=== PATIENT | male | born 1975 | race Caucasian/White ===

== ENCOUNTER 2020-09-12 14:22 | Emergency (ER) | payer SELFPAY ==
[~2020-09-12] VITALS: Ht 170.2 cm; Wt 70.0 kg
[2020-09-12 14:26] VITALS: BP 144/86
[2020-09-12 16:08] LABS: HEMATOCRIT. 43.3 % (42.0-52.0); HEMOGLOBIN. 15.2 g/dL (14.0-18.0); MEAN CORPUSCULAR HEMOGLOBIN 35.8 pg (28.0-32.0); MEAN PLATELET VOLUME 8.6 fl (7.4-10.4); PLATELET 128 x1000/uL (130-400); RED BLOOD CELL COUNT 4.24 mill/uL (4.7-6.1); RED CELL DISTRIBUTION WIDTH 14.8 % (11.6-14.6)
[2020-09-12 16:14] LABS: CHLORIDE 110 mEq/L (98-107)
[2020-09-12 16:44] LABS: ETHANOL BLOOD 520 mg/dL
[2020-09-12 17:25] LABS: PLATELET ESTIMATE SLIGHTLY DECREASED
== END 2020-09-12 16:10 | disposition left against medical advice (07) ==
LOC: ER 14:22
DX: T51.0X1A Toxic effect of ethanol, accidental (unintentional), initial encounter (principal); G92 Toxic encephalopathy; Y90.8 Blood alcohol level of 240 mg/100 ml or more; Y92.488 Other paved roadways as the place of occurrence of the external cause
CPT/HCPCS: 36415; 80053; 80307; 80320; 80329; 85025; 99283; G0480